=== PATIENT | male | born 1995 | race Caucasian/White ===

== ENCOUNTER 2019-07-12 07:06 | Emergency (ER) | payer OTHER ==
--- NOTE | 2019-07-12 08:08 | ED ---
Abdominal Pain/Male - HPI Summary HPI Summary: 24 year old male presenting to [facility] with a chief complaint of lower abdominal pain starting at 0400. The patient rates the pain 3/10 in severity. He reports vomiting after drinking water, flatulence, diaphoresis, and constipation, although he had normal bowel movements in the ED waiting room. Patient denies fever and chills. Symptoms alleviated by Epsom salts. Patient traveled to [place] in the last 30 days. - History of Current Complaint Chief Complaint: EDAbdPain Stated Complaint: ABD PAIN PER PT Time Seen by Provider: 07/12/19 07:34 Hx Obtained From: Patient Onset/Duration: Sudden Onset, Lasting Hours Timing: Lasting Hours Severity Initially: Moderate Severity Currently: Mild Pain Intensity: 6 Pain Scale Used: 0-10 Numeric Location: Diffuse Aggravating Factor(s): Other: - water Alleviating Factor(s): Other: - Epsom Salts Associated Signs And Symptoms: Positive: Diaphoresis, Constipation, Vomiting. Negative: Fever - Allergies/Home Medications Allergies/Adverse Reactions: Allergies Allergy/AdvReac Type Severity Reaction Status Date / Time No Known Allergies Allergy Verified 07/12/19 07:12 Home Medications: Home Medications Bismuth Subsalicylate [Pepto-Bismol] 30 ml PO Q8H PRN 07/12/19 [History Confirmed 07/12/19] Ibuprofen TAB* [Advil TAB*] 400 mg PO Q6H PRN 07/12/19 [History Confirmed ] PMH/Surg Hx/FS Hx/Imm Hx Previously Healthy: Yes Endocrine/Hematology History: Denies: Hx Diabetes Cardiovascular History: Denies: Hx Hypercholesterolemia, Hx Hypertension Infectious Disease History: No Infectious Disease History: Reports: Traveled Outside the [place] in Last 30 Days - [place] - Family History Known Family History: Negative: Hypertension, Diabetes - Social History Alcohol Use: Occasionally Hx Substance Use: No Substance Use Type: Reports: None Hx Tobacco Use: No Smoking Status (MU): Never Smoked Tobacco Review of Systems Positive: Skin Diaphoresis. Negative: Fever, Chills Positive: Abdominal Pain, Vomiting, Other - Constipation All Other Systems Reviewed And Are Negative: Yes Physical Exam - Summary Physical Exam Summary: VITAL SIGNS: Reviewed. GENERAL: Patient is a well-developed and nourished MALE who is lying comfortable in the stretcher. Patient is not in any acute respiratory distress. HEAD AND FACE: No signs of trauma. No ecchymosis, hematomas or skull depressions. No sinus tenderness. EYES: PERRLA, EOMI x 2, No injected conjunctiva, no nystagmus. EARS: Hearing grossly intact. Ear canals and tympanic membranes are within normal limits. MOUTH: Oropharynx within normal limits. NECK: Supple, trachea is midline, no adenopathy, no JVD, no carotid bruit, no c- spine tenderness, neck with full ROM. CHEST: Symmetric, no tenderness at palpation. LUNGS: Clear to auscultation bilaterally. No wheezing or crackles. CVS: Regular rate and rhythm, S1 and S2 present, no murmurs or gallops appreciated. ABDOMEN: Soft, non-tender. No signs of distention. No rebound, no guarding, and no masses palpated. Bowel sounds are normal. EXTREMITIES: FROM in all major joints, no edema, no cyanosis or clubbing. NEURO: Alert and oriented x 3. No acute neurological deficits. Speech is normal and follows commands. SKIN: Dry and warm. Triage Information Reviewed: Yes Vital Signs On Initial Exam: Initial Vitals Temp Pulse Resp BP Pulse Ox 98.6 F 115 16 139/83 97 07/12/19 07:07 07/12/19 07:07 07/12/19 07:07 07/12/19 07:07 07/12/19 07:07 Vital Signs Reviewed: Yes Diagnostics - Vital Signs Vital Signs Temp Pulse Resp BP Pulse Ox 07/12/19 07:07 98.6 F 115 16 139/83 97 - Laboratory Result Diagrams: 07/12/19 10:39 07/12/19 07:59 Lab Statement: Any lab studies that have been ordered have been reviewed, and results considered in the medical decision making process. - Radiology Abd XR Radiology Interpretation Completed By: Radiologist Summary of Radiographic Findings: Abdominal XR shows nonspecific bowel gas pattern. ED physician has reviewed this radiology report. - CT Abd/Pel CT CT Interpretation Completed By: Radiologist Summary of CT Findings: Abdominal/pelvic CT shows no acute pathology of the visualized abdomen or pelvis. ED Physician has reviewed this report. Re-Evaluation - Re-Evaluation 1st Re-Eval Re-Evaluation Time: 11:26 Change: Worse Comment: Patient reports diarrhea and hematochezia. Rectal exam shows blood. No abdominal tenderness now. 2nd re-eval Re-Evaluation Time: 16:25 Change: Improved Comment: Pt denies abd pain. Abdominal Pain Male Course/Dx - Course Assessment/Plan: Patient is a 24-year-old male who presents to the emergency department with a chief complaint of having abdominal pain since this morning. He reports also that he had a bowel movement and his symptoms have resolved. At this time the patient is pain-free and has no complaints. Blood work without a significant abnormality except for (121, Intravenous Is 20, Potassium 3.4, Glucose 122. Abdomen x-ray impression: Nonspecific bowel gas pattern. ED course the patient was given IV fluids for rehydration. I did multiple abdominal exams and the patient does have any tenderness at this point. Patient is asymptomatic. The patient was observed in the ED for more than 4 hours and the symptoms did not return. I repeated the CBC since the initial WBCs were elevated. The second WBCs decreased to 19.1. The patient continues to be asymptomatic. At this point, I discussed the benefits and risks of getting a CAT scan of the abdomen for this patients and he agrees no abdominal pelvic CT at this time. After I discussed all the findings with the patient and he requested no abdominal pelvic CT, he began having diarrhea. He went to the bathroom and he returns stating that he has bloody diarrhea. He also reports some abdominal pain. Therefore we decided to do the CT for the patient at this point. I performed a rectal exam; there is no hemorrhoids but there is a slight pinkish discoloration. Therefore the patient has some blood. Occult blood is positive. C. difficile is negative. Fecal leukocytes are positive. Therefore believe that the patient has an infection diarrhea. Abdominal and pelvic CT impression: No acute pathology but the visualized abdomen and pelvis. The patient was given another liter of fluids. The patient reports that he has no abdominal pain. I did multiple reexaminations of the abdomen is nontender. Therefore the patient will be given a prescription for Bactrim and follow up with the primary care physician. Patient is hemodynamically stable alert and oriented 3. I discussed all the findings and test results with the patient. Patient was instructed to return to the emergency room immediately if any of the symptoms return or worsen. They were explained the possibility of an early abdominal pathology which was not detected at this time despite the physical exam and testing. They understand and agree. Abdominal exam before discharge: Soft, NT. No signs of distention. BS present. No rebound no guarding , and no masses palpated. Patient is alert and oriented and hemodynamically stable. Patient is to follow up with primary care physician in the next 2 to 3 days. Patient agrees and understands - Diagnoses Provider Diagnoses: Abdominal pain, Infectious diarrhea Discharge ED - Sign-Out/Discharge Documenting (check all that apply): Patient Departure Patient Received Moderate/Deep Sedation with Procedure: No - Discharge Plan Condition: Stable Disposition: HOME Prescriptions: Sulfamethox/Trimethoprim DS* [Bactrim DS 800/160 TAB*] 1 tab PO BID #20 tab Patient Education Materials: Acute Diarrhea (ED), Acute Abdominal Pain (ED) Referrals: [facility] [Outside] Additional Instructions: Please take your prescribed medications as instructed. Follow up with your primary care provider within the next 2-3 days. - Billing Disposition and Condition Condition: STABLE Disposition: Home - Attestation Statements Document Initiated by Scribe: Yes Documenting Scribe: Lor Soriano Provider For Whom Mile is Documenting (Include Credential): Dr. Alex Zavala MD Scribe Attestation: I, Lor Soriano, scribed for Dr. Alex Zavala MD on at 1120. Scribe Documentation Reviewed: Yes Provider Attestation: The documentation as recorded by the scribLai parker Kathryn O' Connor accurately reflects the service I personally performed and the decisions made by , Dr. Alex Zavala MD Status of Scribe Document: Viewed
[2019-07-12 08:10] LABS: ABS Lymphocytes 0.6 10^3/ul (1.0-4.8); ABS Monocytes 0.8 10^3/ul (0-0.8); Eosinophil % 0.1 %; Hematocrit 42 % (42-52); Hemoglobin 14.2 g/dL (14.0-18.0); Mean Corpuscular HGB Conc 34 g/dL (31-36); Mean Corpuscular Hemoglobin 30 pg (27-31); Mean Corpuscular Volume 88 fL (80-94); Mean Platelet Volume 10.6 fL (7.4-10.4); Platelet Count 178 10^3/uL (150-450); Red Blood Count 4.78 10^6 /uL (4.18-5.48); Red Cell Distribution Width 13 % (10-15); White Blood Count 21.6 10^3/uL (3.5-10.8)
[2019-07-12 08:23] LABS: ALT 16 U/L (7-52); AST 23 U/L (13-39); Albumin 5.3 g/dL (3.2-5.2); Alkaline Phosphatase 67 U/L (34-104); Anion Gap 9 mmol/L (2-11); BUN/Creatinine Ratio 18.1 (8-20); Blood Urea Nitrogen 15 mg/dL (6-24); C Reactive Protein < 1.00 mg/L (<8.01); CO2 Carbon Dioxide 27 mmol/L (22-32); Calcium 10.1 mg/dL (8.6-10.3); Chloride 103 mmol/L (101-111); EGFR African American 136.6 (>60); EGFR Non-African American 112.9 (>60); Globulin 2.7 g/dL (2-4); Glucose 122 mg/dL (70-100); Potassium 3.4 mmol/L (3.5-5.0); Sodium 139 mmol/L (135-145)
[2019-07-12] MEDS ORDERED: NS 0.9% 1000 ML** 1,000 ML IV.FLUID IV ONE (09:19)
[2019-07-12 09:42] LABS: Urine Appearance Clear; Urine Bacteria Absent (Absent); Urine Bilirubin 1+ (Negative); Urine Blood Negative (Negative); Urine Color Amber; Urine Glucose Negative (Negative); Urine Ketones 1+ (Negative); Urine Nitrite Negative (Negative); Urine Protein 1+(30 mg/dL) (Negative); Urine Red Blood Cell 2+(6-10/hpf) (Absent); Urine Specific Gravity 1.038 (1.010-1.030); Urine Urobilinogen Positive (Negative); Urine White Blood Cell Trace(0-5/hpf) (Absent)
[2019-07-12] MEDS ORDERED: NS 0.9% 1000 ML** 1,000 ML IV ONE (10:08)
[2019-07-12 10:49] LABS: ABS Lymphocytes 0.6 10^3/ul (1.0-4.8); ABS Monocytes 1.4 10^3/ul (0-0.8); ABS Neutrophils 17.2 10^3/ul (1.5-7.7); Hematocrit 41 % (42-52); Hemoglobin 13.6 g/dL (14.0-18.0); Lymphocyte % 3.2 %; Mean Corpuscular HGB Conc 34 g/dL (31-36); Mean Corpuscular Hemoglobin 30 pg (27-31); Mean Corpuscular Volume 89 fL (80-94); Mean Platelet Volume 10.3 fL (7.4-10.4); Platelet Count 171 10^3/uL (150-450); Red Cell Distribution Width 13 % (10-15); White Blood Count 19.1 10^3/uL (3.5-10.8)
[2019-07-12] MEDS ORDERED: Iohexol 300* (CONTRAST) 10 ML SDV IV ONE (11:48)
[2019-07-12] MEDS ORDERED: Sulfamethox/Trimethoprim DS 800/160* TAB PO ONE (16:22)
[2019-07-12 16:46] VITALS: BP 92/78
== END 2019-07-12 16:30 | disposition home or self-care (01) ==
LOC: ED 07:06
DX: A09 Infectious gastroenteritis and colitis, unspecified (principal); R10.30 Lower abdominal pain, unspecified
CPT/HCPCS: 36415; 74019; 74177; 80053; 81003; 81015; 82270; 83605; 83630; 83690; 85025; 86140; 87045; 87046; 87086; 87493; 87899; 96360; 96361; 99283; A9270-GY; Q9967